=== PATIENT | male | born 1950 | race Caucasian/White ===

== ENCOUNTER 2024-01-04 09:02 | Inpatient (IN) ==
[2024-01-04 11:07] LABS: Basophils # (Auto) 0.01 K/mcL (0.00-0.30); Basophils % (Auto) 0.1 % (0.0-2.0); Eosinophils # (Auto) 0.11 K/mcL (0.00-0.70); Eosinophils % (Auto) 1.6 % (0.0-7.0); Hematocrit 40.7 % (40.1-51.0); Hemoglobin 12.7 g/dL (13.7-17.5); Lymphocytes # (Auto) 1.17 K/mcL (1.50-4.80); Lymphocytes % (Auto) 16.6 % (15.5-49.0); Mean Corpuscular HGB Conc 31.2 g/dL (31.0-36.0); Mean Platelet Volume 9.5 fL (8.8-12.5); Monocytes # (Auto) 0.92 K/mcL (0.10-0.90); Neutrophils % (Auto) 68.6 % (38.0-78.0); Platelet Count 199 K/mcL (140-440); RBC 5.09 M/mcL (4.63-6.08); Red Cell Distribution Width 16.9 % (11.5-14.5); WBC 7.1 K/mcL (4.5-11.0)
[2024-01-04 11:12] LABS: Thyroid Stimulating Hormone 2.26 uIU/mL (0.27-5.01)
[2024-01-04 11:25] LABS: ALT/SGPT < 5 U/L (<40); AST/SGOT 23 U/L (<40); Albumin 4.3 gm/dL (3.2-5.2); Alkaline Phosphatase 99 U/L (39-117); Bilirubin,Total 1.5 mg/dL (0.1-1.0); Blood Urea Nitrogen 32 mg/dL (8-23); Calcium 13.6 mg/dL (8.6-10.4); Carbon Dioxide 27 mmol/L (22-30); Chloride 102 mmol/L (96-108); Globulin 2.1 gm/dL (2.2-3.7); Glomerular Filtration Rate 46; Glucose 94 mg/dL (70-105)
[2024-01-04] MEDS: 0.9 % SODIUM CHLORIDE 1,000 ML IV ONE (11:48)
[2024-01-04 11:55] LABS: Prothrombin Time 13.6 sec (11.9-14.5)
[2024-01-04 12:58] LABS: Appearance,Urine Clear (Clear); Bilirubin,Urine Negative (Negative); Color,Urine Yellow; Culture Indicated,Urine No; Glucose,Urine (UA) Negative (Negative); Ketones,Urine Negative (Negative); Leukocyte Esterase,Urine Negative /uL (Negative); Nitrate,Urine Negative (Negative); Protein,Urine Negative (Negative); Specific Gravity,Urine 1.015 (1.000-1.035); Urine Blood Negative ery/mcL (Negative); Urobilinogen,Urine Normal
[2024-01-04 12:59] LABS: Phosphorous 4.1 mg/dL (2.5-4.5)
[2024-01-04] MEDS: ACETAMINOPHEN 650 MG/65 ML BAG IV ONE (13:08)
[2024-01-04] MEDS ORDERED: ACETAMINOPHEN 325 MG TABLET PO PRN (14:36)
[2024-01-04] MEDS ORDERED: POTASSIUM CHLORIDE 40 MEQ in DEXTROSE 5% IN WATER 500 ML IV PRN (14:36)
[2024-01-04] MEDS ORDERED: POTASSIUM CHLORIDE 20 MEQ TABLET PO PRN (14:36)
[2024-01-04] MEDS ORDERED: MAGNESIUM SULFATE 2 GM/50 ML BAG IV PRN (14:36)
[2024-01-04] MEDS ORDERED: IPRATROPIUM/ALBUTEROL 3 ML AMPUL.NEB NEB PRN (14:36)
[2024-01-04] MEDS ORDERED: SENNOSIDES 1 TABLET PO PRN (14:36)
[2024-01-04] MEDS: PAMIDRONATE 90 MG in 0.9 % SODIUM CHLORIDE 500 ML IV SCH (15:00)
[2024-01-04] MEDS: 0.9 % SODIUM CHLORIDE 1,000 ML IV SCH (15:03)
[2024-01-04] MEDS: CALCITONIN 400 UNIT/2 ML VIAL SC SCH (15:15)
[2024-01-04] MEDS: HYDROcodone/APAP 5/325MG TABLET PO PRN (16:17)
[2024-01-04] MEDS: OMEPRAZOLE 20 MG CAPSULE PO SCH (17:20)
[2024-01-04] MEDS: POTASSIUM CHLORIDE 20 MEQ TABLET PO PRN (18:39)
[2024-01-04] MEDS: hydrALAZINE 20 MG/ML VIAL IV PRN (18:39)
[2024-01-04] MEDS: DOCUSATE SODIUM 100 MG CAPSULE PO SCH (20:32)
[2024-01-04] MEDS: APIXABAN 5 MG TABLET PO SCH (20:32)
[2024-01-05] MEDS: morphine 4 MG/ML VIAL IV PRN (04:14)
[2024-01-05 06:12] LABS: Basophils # (Auto) 0.02 K/mcL (0.00-0.30); Basophils % (Auto) 0.2 % (0.0-2.0); Eosinophils # (Auto) 0.11 K/mcL (0.00-0.70); Eosinophils % (Auto) 1.3 % (0.0-7.0); Hematocrit 38.7 % (40.1-51.0); Hemoglobin 12.3 g/dL (13.7-17.5); Lymphocytes # (Auto) 0.95 K/mcL (1.50-4.80); Lymphocytes % (Auto) 11.5 % (15.5-49.0); Mean Cell Volume 78.7 fL (80.0-100.0); Mean Corpuscular HGB Conc 31.8 g/dL (31.0-36.0); Mean Platelet Volume 9.7 fL (8.8-12.5); Monocytes % (Auto) 14.6 % (1.0-12.0); Neutrophils % (Auto) 72.2 % (38.0-78.0); Platelet Count 227 K/mcL (140-440); RBC 4.92 M/mcL (4.63-6.08); WBC 8.2 K/mcL (4.5-11.0)
[2024-01-05 06:38] LABS: ALT/SGPT < 5 U/L (<40); AST/SGOT 22 U/L (<40); Albumin 3.9 gm/dL (3.2-5.2); Albumin/Globulin Ratio 2.2 (1.0-2.3); Alkaline Phosphatase 91 U/L (39-117); Bilirubin,Direct 0.5 mg/dL (<0.3); Bilirubin,Total 1.4 mg/dL (0.1-1.0); Blood Urea Nitrogen 29 mg/dL (8-23); Calcium 11.5 mg/dL (8.6-10.4); Carbon Dioxide 21 mmol/L (22-30); Chloride 112 mmol/L (96-108); Globulin 1.8 gm/dL (2.2-3.7); Glomerular Filtration Rate 46; Glucose 90 mg/dL (70-105); Lactate Dehydrogenase 151 U/L (135-225); Phosphorous 2.4 mg/dL (2.5-4.5); Triglycerides 123 mg/dL (<150); Uric Acid 9.7 mg/dL (2.5-8.0)
[2024-01-05] MEDS: amLODIPine 5 MG TABLET PO SCH (08:44)
[2024-01-05] MEDS: 0.45 % SODIUM CHLORIDE 1,000 ML IV ONE (08:44)
[2024-01-05 09:06] LABS: Iron 44 ug/dL (61-157); TIBC Calculation 311 ug/dl (228-428); Transferrin % Saturation 14 % (20-50)
[2024-01-05 09:14] LABS: Ferritin 79.8 ng/mL (30.0-400.0)
[2024-01-05 09:30] LABS: Retic Absolute 0.04 M/mcL (0.03-0.11)
[2024-01-05 12:22] LABS: Kappa Free Light Chains 22.38 mg/L (3.30-19.40); Lambda Free Light Chains 8.84 mg/L (5.71-26.30)
[2024-01-05] MEDS: POLYETHYLENE GLYCOL 3350 17 GM PACKET PO PRN (14:43)
[2024-01-05] MEDS ORDERED: IOPAMIDOL 100 ML BOTTLE IV ONE (18:00)
[2024-01-05] MEDS: MELATONIN 3 MG TABLET PO SCH (18:37)
[2024-01-05] MEDS: traZODone HCL 50 MG TABLET PO PRN (21:12)
[2024-01-05] MEDS: diphenhydrAMINE 25 MG CAPSULE PO PRN (22:51)
[2024-01-06 06:16] LABS: Basophils # (Auto) 0.03 K/mcL (0.00-0.30); Basophils % (Auto) 0.4 % (0.0-2.0); Eosinophils # (Auto) 0.13 K/mcL (0.00-0.70); Eosinophils % (Auto) 1.6 % (0.0-7.0); Hematocrit 40.1 % (40.1-51.0); Hemoglobin 12.4 g/dL (13.7-17.5); Lymphocytes # (Auto) 0.98 K/mcL (1.50-4.80); Mean Cell Volume 80.5 fL (80.0-100.0); Mean Corpuscular HGB Conc 30.9 g/dL (31.0-36.0); Monocytes # (Auto) 1.02 K/mcL (0.10-0.90); Monocytes % (Auto) 12.4 % (1.0-12.0); Neutrophils % (Auto) 73.4 % (38.0-78.0); Platelet Count 211 K/mcL (140-440); RBC 4.98 M/mcL (4.63-6.08); Red Cell Distribution Width 17.6 % (11.5-14.5); WBC 8.2 K/mcL (4.5-11.0)
[2024-01-06 08:12] LABS: ALT/SGPT < 5 U/L (<40); AST/SGOT 21 U/L (<40); Albumin 3.9 gm/dL (3.2-5.2); Albumin/Globulin Ratio 2.1 (1.0-2.3); Alkaline Phosphatase 93 U/L (39-117); Bilirubin,Direct 0.4 mg/dL (<0.3); Bilirubin,Total 1.2 mg/dL (0.1-1.0); Blood Urea Nitrogen 24 mg/dL (8-23); Calcium 11.5 mg/dL (8.6-10.4); Carbon Dioxide 19 mmol/L (22-30); Chloride 113 mmol/L (96-108); Globulin 1.9 gm/dL (2.2-3.7); Glomerular Filtration Rate 50; Glucose 94 mg/dL (70-105); Lactate Dehydrogenase 152 U/L (135-225); Phosphorous 2.6 mg/dL (2.5-4.5); Triglycerides 122 mg/dL (<150); Uric Acid 8.8 mg/dL (2.5-8.0)
[2024-01-06] MEDS: 0.45 % SODIUM CHLORIDE 1,000 ML IV SCH (10:11)
[2024-01-06] MEDS: LISINOPRIL 20 MG TABLET PO SCH (14:24)
[2024-01-06 16:31] LABS: Albumin PEP 3.45 gm/dL (3.10-4.70); Albumin/Globulin Ratio PEP 1.5 RATIO (0.9-1.7); Alpha-1-Globulins 0.28 gm/dL (0.10-0.50); Alpha-2-Globulins 0.73 gm/dL (0.40-1.20); Beta Globulins 0.74 gm/dL (0.60-1.20); Globulin PEP 2.3 gm/dL (2.4-3.6); Total Protein PEP 5.7 gm/dL (5.9-8.4)
[2024-01-06] MEDS: LIDOCAINE 4% TOP PATCH TOPICAL SCH (20:19)
[2024-01-07 06:02] LABS: Basophils # (Auto) 0.02 K/mcL (0.00-0.30); Basophils % (Auto) 0.3 % (0.0-2.0); Eosinophils # (Auto) 0.19 K/mcL (0.00-0.70); Eosinophils % (Auto) 2.9 % (0.0-7.0); Hematocrit 38.5 % (40.1-51.0); Hemoglobin 11.8 g/dL (13.7-17.5); Lymphocytes # (Auto) 0.91 K/mcL (1.50-4.80); Lymphocytes % (Auto) 13.7 % (15.5-49.0); Mean Cell Volume 81.6 fL (80.0-100.0); Mean Corpuscular HGB Conc 30.6 g/dL (31.0-36.0); Mean Platelet Volume 9.8 fL (8.8-12.5); Monocytes # (Auto) 0.95 K/mcL (0.10-0.90); Monocytes % (Auto) 14.3 % (1.0-12.0); Neutrophils % (Auto) 68.6 % (38.0-78.0); Platelet Count 196 K/mcL (140-440); RBC 4.72 M/mcL (4.63-6.08); Red Cell Distribution Width 17.7 % (11.5-14.5); WBC 6.7 K/mcL (4.5-11.0)
[2024-01-07 06:12] LABS: ALT/SGPT < 5 U/L (<40); AST/SGOT 21 U/L (<40); Albumin 3.8 gm/dL (3.2-5.2); Alkaline Phosphatase 91 U/L (39-117); Bilirubin,Total 1.2 mg/dL (0.1-1.0); Blood Urea Nitrogen 24 mg/dL (8-23); Calcium 10.9 mg/dL (8.6-10.4); Carbon Dioxide 20 mmol/L (22-30); Chloride 111 mmol/L (96-108); Globulin 1.9 gm/dL (2.2-3.7); Glomerular Filtration Rate 54; Glucose 94 mg/dL (70-105)
[2024-01-07] MEDS: ONDANSETRON 4 MG/2 ML VIAL IV PRN (07:17)
[2024-01-07] MEDS: KETOROLAC 15 MG/ML VIAL IV PRN (09:38)
[2024-01-10 13:23] LABS: PTH Related Protein-SO < 2.0 pmol/L
[2024-01-13 14:06] LABS: Vit D 1,25 Dihydroxy 14 ng/mL
== END 2024-01-07 12:37 | disposition home or self-care (01) | DRG 641 ==
LOC: ED 09:02 → ICU 14:24
PROVIDERS: ADMIT Internal Medicine; ATTEND Internal Medicine